=== PATIENT | female | born 1955 | race Caucasian/White ===

== ENCOUNTER 2017-10-03 18:45 | Emergency (ER) | payer OTHER ==
[~2017-10-03] VITALS: Ht 167.6 cm; Wt 89.4 kg
[2017-10-03] MEDS ORDERED: HYDR-971 PO (23:21)
--- NOTE | 2017-10-03 23:22 | PHYS DOC ---
Past History Past Medical History: No Pertinent History Past Surgical History: Hysterectomy Smoking: Non-smoker Alcohol Use: None Drug Use: None Social History Narrative: Lives in [place], [place] Adult General Chief Complaint Chief Complaint: MECHANICAL FALL HPI HPI Patient is a 62 year old female who presents with right knee pain. She is here visiting from Friday. She was at a special event earlier honoring her son-in- law in the when she slipped on the ice and fell. She twisted her right knee. She has pain on the outer aspect of it ever since. She has been ambulating. This happened at 1513 p.m. She'll be returning to [place] on Friday. States now has been getting quite swollen and more painful. No other complaints or injuries. Review of Systems Review of Systems Constitutional: Denies fever or chills Eyes: Denies change in visual acuity, redness, or eye pain HENT: Denies nasal congestion or sore throat Respiratory: Denies cough or shortness of breath Musculoskeletal: Denies back pain POS right joint pain Integument: Denies rash or skin lesions;no laceration Neurologic: Denies headache, focal weakness or sensory changes All other systems were reviewed and found to be within normal limits, except as documented in this note. Physical Exam Physical Exam Constitutional: Well developed, well nourished, no acute distress, non-toxic appearance. Skin: Warm, dry, no erythema, no rash. Back: No tenderness, no CVA tenderness. Extremities: Right knee: swelling noted laterally with tenderness, no cyanosis, no clubbing, ROM intact but limited secondary to pain, no edema. NVI distally Neurologic: Alert and oriented X 3, normal motor function, normal sensory function, no focal deficits noted. Current Patient Data Vital Signs Vital Signs Date Time Temp Pulse Resp B/P (MAP) Pulse Ox O2 Delivery O2 Flow Rate FiO2 10/03/17 21:25 97.8 80 20 97 Room Air Radiology/Procedures Radiology/Procedures Right knee xray interpreted by myself at 2215 PM: no acute fracture seen. Course & Med Decision Making Course & Med Decision Making Evaluated patient. X-ray was obtained. No fracture however does have internal derangement noted. Lateral area tender & swollen with possible lateral ligament compromise. Immobilizer placed patient crutches. Ice. [place] was dosed here with prescription. X-rays were copied and sent with her so she can have follow-up in [place] when she returns on Friday. I have spoken with the patient and/or caregivers. I have explained the patient' s condition, diagnosis and treatment plan based on the information available to me at this time. I have answered the patient's and/or caregiver's questions and addressed any concerns. The patient and/or caregivers have as good an understanding of the patient's diagnosis, condition and treatment plan as can be expected at this point. The patient's condition is stable and appropriate for discharge from the emergency department. The patient will pursue further outpatient evaluation with the primary care physician or other designated or consulting physician as outlined in the discharge instructions. The patient and/or caregivers are agreeable to this plan of care and follow-up instructions have been explained in detail. The patient and/or caregivers have received these instructions in written format and have expressed an understanding of the discharge instructions. The patient and/or caregivers are aware that any significant change in condition or worsening of symptoms should prompt an immediate return to this or the closest emergency department or a call to 911. Otto Disclaimer Dragon Disclaimer This electronic medical record was generated, in whole or in part, using a voice recognition dictation system. Departure Departure: Impression: Primary Impression: Internal derangement of right knee Disposition: HOME, SELF-CARE Condition: STABLE Referrals: ALYCIA RODGERS (PCP) Patient Instructions: Combined Knee Ligament Sprain-SportsMed Additional Instructions: YOUR XRAY WAS COPIED FOR YOU TAKE. NON WEIGHT BEARING UNTIL RECHECKED. ICE AND ELEVATE. USE THE CRUTCHES TO AMBULATE. KNEE IMMOBILIZER FOR COMFORT. CONTACT YOUR DOCTOR WHEN YOU RETURN HOME TO [facility] NEXT WEEK. Scripts Hydrocodone Bit/Acetaminophen (NORCO 5-325 TABLET) 1 Each Tablet 1-2 TAB PO Q4-6HRS, #20 TAB Prov: MIGUEL COOPER MD 10/03/17 MIGUEL COOPER MD Oct 03, 2017 23:21
[2017-10-03] MEDS ORDERED: HYDROcodone/APAP 5/325MG 1 TAB TABLET PO ONE (23:30)
[2017-10-03] MEDS ORDERED: HYDROcodone/APAP 5/325MG 1 TAB TABLET ONE (23:32)
[2017-10-03 23:40] VITALS: BP 153/92
--- NOTE | 2017-10-04 08:40 | RAD ---
3 views right knee 10/03/2017 Clinical indication: Fall with right knee pain. Comparison: None. Findings: No acute fracture or dislocation. Joint spaces are maintained. There is mild tricompartment osteophytic spurring. There is a small suprapatellar knee joint effusion. Normal bony alignment. Impression: 1. No acute osseous abnormality. 2. Small suprapatellar knee joint effusion may represent internal arrangement. If clinically indicated, MRI could be obtained for further evaluation.
== END 2017-10-03 23:44 | disposition home or self-care (01) ==
LOC: ER 18:45
DX: M23.91 Unspecified internal derangement of right knee (principal)
CPT/HCPCS: 29505; 73562; 99284-25